=== PATIENT | female | born 1950 | race Caucasian/White ===

== ENCOUNTER 2024-05-26 15:26 | Emergency (ER) | payer MEDICARE ==
[2024-05-26] VITALS (9 sets, daily range): BP systolic 109–129; BP diastolic 64–71
[~2024-05-26] VITALS: Ht 170.2 cm; Wt 68.0 kg
[2024-05-26] MEDS ORDERED: ASPIRIN 81 MG/TAB PO ONE (15:45)
[2024-05-26 16:31] LABS: BASO% 0.5 % (0-3); EOS% 1.7 % (0-8); HEMATOCRIT 38.4 % (37.0-47.0); HEMOGLOBIN 12.5 g/dl (12.0-16.0); IMMATURE GRANULOCYTES 0.5 % (0.0-5.0); LYMPH% 27.5 % (15-41); MEAN CELL VOLUME 85.7 fL CALC (80.0-100.0); MEAN CORPUSCULAR HGB 27.9 pG CALC (26.0-32.0); MEAN CORPUSCULAR HGB CONC 32.6 g/dL CAL (32.0-36.0); MONO% 5.5 % (2-13); NEUT# 5.37 thou/uL (2.00-7.15); NEUT% 64.3 % (42-76); RED BLOOD COUNT 4.48 mill/uL (4.20-5.60); RED CELL DISTRI WIDTH 14.3 % (11.5-15.5)
[2024-05-26 16:40] LABS: ALBUMIN 4.5 g/dL (3.2-5.0); ALKALINE PHOSPHATASE 68 u/l (38-126); ANION GAP 17 (6-22 (CALC)); BILIRUBIN, TOTAL 0.7 mg/dL (0.02-1.3); BUN 20 mg/dL (8-23); BUN/CREATININE RATIO 21 (12-20 (CALC)); CARBON DIOXIDE 19 mmol/l (22-30); CHLORIDE 106 mmol/l (95-108); ESTIMATED GFR 59 ML/MIN (>=90 (CALC)); SGOT/AST 29 u/l (9-36); SODIUM 138 mmol/l (137-146); TOTAL PROTEIN 7.4 g/dL (6.3-8.2)
[2024-05-26] MEDS ORDERED: DEXTROSE 250 ML IV ONE (16:52)
== END 2024-05-26 18:53 | disposition left against medical advice (07) ==
LOC: ED 15:26
PROVIDERS: Family Medicine
DX: R07.9 Chest pain, unspecified (principal); K44.9 Diaphragmatic hernia without obstruction or gangrene; Z53.29 Procedure and treatment not carried out because of patient's decision for other reasons
CPT/HCPCS: Q9967